=== PATIENT | male | born 1945 | race Native Hawaiian/Other Pacific Islander ===

== ENCOUNTER 2017-10-13 09:45 | Outpatient (CLI) | payer OTHER ==
[2017-10-13 10:04] LABS: PLATELET COUNT 188 K/uL (142-355)
[2017-10-13 10:23] LABS: POTASSIUM 4.2 mmol/L (3.6-5.2)
== END 2017-10-13 19:06 | disposition home or self-care (01) ==
LOC: LAB 09:45
PROVIDERS: Internal Medicine
DX: E29.1 Testicular hypofunction (principal); I10 Essential (primary) hypertension; G47.33 Obstructive sleep apnea (adult) (pediatric); Z12.5 Encounter for screening for malignant neoplasm of prostate
CPT/HCPCS: 80053; 80061; 84153; 84403; 84443; 85027

== ENCOUNTER 2020-03-06 13:56 | Outpatient (CLI) | payer OTHER ==
[2020-03-06 14:19] LABS: PLATELET COUNT 210 K/uL (142-355)
[2020-03-06 14:46] LABS: POTASSIUM 4.5 mmol/L (3.6-5.2)
== END 2020-03-06 22:34 | disposition home or self-care (01) ==
LOC: LAB 13:56
PROVIDERS: Internal Medicine
DX: Z00.00 Encounter for general adult medical examination without abnormal findings (principal); I10 Essential (primary) hypertension; Z12.5 Encounter for screening for malignant neoplasm of prostate; E29.1 Testicular hypofunction; N40.0 Benign prostatic hyperplasia without lower urinary tract symptoms
CPT/HCPCS: 80053; 80061; 81000; 84153; 84402; 84403; 84439; 84443; 85027

== ENCOUNTER 2020-03-14 09:11 | Outpatient (CLI) | payer OTHER | END 2020-03-14 20:23 | disposition home or self-care (01) | LOC: US 09:11 | DX: Z12.2 Encounter for screening for malignant neoplasm of respiratory organs (principal); Z13.6 Encounter for screening for cardiovascular disorders; Z87.891 Personal history of nicotine dependence | CPT/HCPCS: G0297-TC ==

== ENCOUNTER 2020-03-22 10:12 | Outpatient (CLI) | payer OTHER ==
[2020-03-22 11:19] LABS: POTASSIUM 4.4 mmol/L (3.6-5.2)
== END 2020-03-22 14:16 | disposition home or self-care (01) ==
LOC: LAB 10:12
PROVIDERS: ATTEND Internal Medicine
DX: R73.9 Hyperglycemia, unspecified (principal)
CPT/HCPCS: 80053; 83036

== ENCOUNTER 2020-05-11 08:53 | Outpatient (CLI) | payer OTHER | END 2020-05-11 23:52 | disposition home or self-care (01) | LOC: US 08:53 | DX: H34.8310 Tributary (branch) retinal vein occlusion, right eye, with macular edema (principal) ==

== ENCOUNTER 2020-07-05 23:06 | Emergency (ER) | payer OTHER ==
[~2020-07-05] VITALS: Ht 180.3 cm; Wt 82.6 kg
[2020-07-05 23:39] LABS: PLATELET COUNT 192 K/uL (142-355)
[2020-07-05 23:44] LABS: POTASSIUM 4.5 mmol/L (3.6-5.2); SODIUM 138 mmol/L (136-145)
[2020-07-06 05:35] VITALS: BP 150/77; TEMP 99
== END 2020-07-06 05:35 | disposition short-term general hospital (02) ==
LOC: ED 23:06
PROVIDERS: Emergency Medicine Emergency Medical Services
DX: K85.10 Biliary acute pancreatitis without necrosis or infection (principal)
CPT/HCPCS: 80053; 81000; 83690; 84484; 85027; 93005; 96360; 96365; 96375; 96376; 99284; J1170; J2270; J2405; J2543; Q9963

== ENCOUNTER 2020-07-31 12:00 | Outpatient (CLI) | payer OTHER ==
[2020-07-31 12:39] LABS: PLATELET COUNT 223 K/uL (142-355)
[2020-07-31 12:41] LABS: POTASSIUM 4.2 mmol/L (3.6-5.2)
== END 2020-07-31 22:28 | disposition home or self-care (01) ==
LOC: LAB 12:00
PROVIDERS: ATTEND Internal Medicine
DX: K85.10 Biliary acute pancreatitis without necrosis or infection (principal)
CPT/HCPCS: 80053; 81000; 82150; 83690; 85027

== ENCOUNTER 2020-10-02 07:54 | Outpatient (CLI) | payer OTHER ==
[2020-10-02 08:17] LABS: PLATELET COUNT 191 K/uL (142-355)
[2020-10-02 08:45] LABS: POTASSIUM 4.5 mmol/L (3.6-5.2)
== END 2020-10-02 19:43 | disposition home or self-care (01) ==
LOC: LABW 07:54
PROVIDERS: ATTEND Physician Assistant
DX: R74.8 Abnormal levels of other serum enzymes (principal); K85.10 Biliary acute pancreatitis without necrosis or infection; Z86.010 Personal history of colon polyps; D64.89 Other specified anemias
CPT/HCPCS: 36415; 80053; 82150; 82248; 82607; 82728; 82746; 82977; 83540; 83550; 83690; 85027; 85610

== ENCOUNTER 2021-01-10 08:20 | Outpatient (CLI) | payer OTHER | END 2021-01-10 23:16 | disposition home or self-care (01) | LOC: CT 08:20 | PROVIDERS: ATTEND Physician Assistant | DX: K76.0 Fatty (change of) liver, not elsewhere classified (principal); K85.10 Biliary acute pancreatitis without necrosis or infection; D64.89 Other specified anemias; Z86.010 Personal history of colon polyps | CPT/HCPCS: 36415; 82565; 84520; Q9963 ==

== ENCOUNTER 2021-02-05 08:12 | Outpatient (CLI) | payer OTHER ==
[2021-02-05 08:50] LABS: PLATELET COUNT 187 K/uL (142-355)
== END 2021-02-05 22:39 | disposition home or self-care (01) ==
LOC: LABW 08:12
PROVIDERS: ATTEND Internal Medicine
DX: E11.9 Type 2 diabetes mellitus without complications (principal)
CPT/HCPCS: 36415; 80053; 80061; 81000; 82043; 82570; 83036; 84439; 84443; 85027

== ENCOUNTER 2021-05-29 07:35 | Outpatient (CLI) | payer OTHER ==
[2021-05-29 07:54] LABS: PLATELET COUNT 185 K/uL (142-355)
[2021-05-29 08:32] LABS: POTASSIUM 4.4 mmol/L (3.6-5.2)
== END 2021-05-29 18:59 | disposition home or self-care (01) ==
LOC: LABW 07:35
PROVIDERS: ATTEND Physician Assistant
DX: K76.0 Fatty (change of) liver, not elsewhere classified (principal); Z87.19 Personal history of other diseases of the digestive system; Z86.2 Personal history of diseases of the blood and blood-forming organs and certain disorders involving the immune mechanism; Z86.010 Personal history of colon polyps; Z09 Encounter for follow-up examination after completed treatment for conditions other than malignant neoplasm
CPT/HCPCS: 36415; 80053; 82105; 83690; 85027; 85610

== ENCOUNTER 2021-09-12 07:50 | Outpatient (CLI) | payer OTHER ==
[2021-09-12 08:15] LABS: PLATELET COUNT 172 K/uL (142-355)
[2021-09-12 08:40] LABS: POTASSIUM 4.2 mmol/L (3.6-5.2)
== END 2021-09-12 18:50 | disposition home or self-care (01) ==
LOC: LABW 07:50
PROVIDERS: ATTEND Internal Medicine
DX: E11.9 Type 2 diabetes mellitus without complications (principal); K76.0 Fatty (change of) liver, not elsewhere classified
CPT/HCPCS: 36415; 80053; 80061; 81000; 82248; 83036; 84439; 84443; 85027

== ENCOUNTER 2021-12-02 07:38 | Outpatient (CLI) | payer OTHER ==
[2021-12-02 08:27] LABS: PLATELET COUNT 159 K/uL (142-355)
== END 2021-12-02 19:05 | disposition home or self-care (01) ==
LOC: LABW 07:38
PROVIDERS: ATTEND Physician Assistant
DX: R74.8 Abnormal levels of other serum enzymes (principal); K76.0 Fatty (change of) liver, not elsewhere classified; Z87.19 Personal history of other diseases of the digestive system; Z86.2 Personal history of diseases of the blood and blood-forming organs and certain disorders involving the immune mechanism; Z09 Encounter for follow-up examination after completed treatment for conditions other than malignant neoplasm
CPT/HCPCS: 36415; 80053; 80074; 82105; 82728; 82784; 82977; 83516; 83540; 83550; 83690; 85027; 85610; 86038

== ENCOUNTER 2021-12-19 07:31 | Outpatient (CLI) | payer OTHER | END 2021-12-19 19:06 | disposition home or self-care (01) | LOC: LABW 07:31 | PROVIDERS: ATTEND Physician Assistant | DX: R79.89 Other specified abnormal findings of blood chemistry (principal); R93.2 Abnormal findings on diagnostic imaging of liver and biliary tract; R74.8 Abnormal levels of other serum enzymes | CPT/HCPCS: 36415; 81256; 82728 ==

== ENCOUNTER → 2022-06-03 | Outpatient (CLI) | payer OTHER | LOC: LABW 08:19 | PROVIDERS: ATTEND Physician Assistant | DX: K76.0 Fatty (change of) liver, not elsewhere classified (principal); K74.60 Unspecified cirrhosis of liver; R74.8 Abnormal levels of other serum enzymes; Z87.19 Personal history of other diseases of the digestive system; Z86.2 Personal history of diseases of the blood and blood-forming organs and certain disorders involving the immune mechanism; I10 Essential (primary) hypertension; I25.10 Atherosclerotic heart disease of native coronary artery without angina pectoris; E78.5 Hyperlipidemia, unspecified; E11.9 Type 2 diabetes mellitus without complications | CPT/HCPCS: 36415; 80061; 83036; 84439; 84443 ==

== ENCOUNTER 2022-06-09 07:35 | Outpatient (CLI) | payer OTHER ==
[2022-06-09 08:08] LABS: PLATELET COUNT 157 K/uL (142-355)
== END 2022-06-09 18:55 | disposition home or self-care (01) ==
LOC: LABW 07:35
PROVIDERS: ATTEND Physician Assistant
DX: K76.0 Fatty (change of) liver, not elsewhere classified (principal); K74.60 Unspecified cirrhosis of liver; R74.8 Abnormal levels of other serum enzymes; Z87.19 Personal history of other diseases of the digestive system; Z86.2 Personal history of diseases of the blood and blood-forming organs and certain disorders involving the immune mechanism; Z09 Encounter for follow-up examination after completed treatment for conditions other than malignant neoplasm; I10 Essential (primary) hypertension; E78.49 Other hyperlipidemia; E11.9 Type 2 diabetes mellitus without complications; I25.10 Atherosclerotic heart disease of native coronary artery without angina pectoris
CPT/HCPCS: 36415; 80053; 82105; 82728; 82977; 85027; 85610

== ENCOUNTER 2022-09-23 07:33 | Outpatient (CLI) | payer OTHER | END 2022-09-23 19:26 | disposition home or self-care (01) | LOC: LABW 07:33 | PROVIDERS: ATTEND Physician Assistant | DX: K74.60 Unspecified cirrhosis of liver (principal); K76.89 Other specified diseases of liver | CPT/HCPCS: 36415; 82565; 84520 ==

== ENCOUNTER 2022-12-19 12:27 | Outpatient (CLI) | payer OTHER ==
[2022-12-19 13:00] LABS: PLATELET COUNT 147 K/uL (142-355)
[2022-12-19 13:59] LABS: POTASSIUM 4.3 mmol/L (3.6-5.2); SODIUM 138 mmol/L (136-145)
== END 2022-12-19 19:17 | disposition home or self-care (01) ==
LOC: LAB 12:27
PROVIDERS: ATTEND Internal Medicine
DX: E11.9 Type 2 diabetes mellitus without complications (principal); I10 Essential (primary) hypertension; E55.9 Vitamin D deficiency, unspecified; Z12.5 Encounter for screening for malignant neoplasm of prostate; N40.0 Benign prostatic hyperplasia without lower urinary tract symptoms
CPT/HCPCS: 80053; 80061; 81002; 82306; 83036; 84153; 84439; 84443; 85027

== ENCOUNTER 2023-01-12 07:34 | Outpatient (CLI) | payer OTHER ==
[2023-01-12 07:52] LABS: PLATELET COUNT 160 K/uL (142-355)
[2023-01-12 08:29] LABS: POTASSIUM 4.7 mmol/L (3.6-5.2)
== END 2023-01-12 20:01 | disposition home or self-care (01) ==
LOC: LABW 07:34
PROVIDERS: ATTEND Physician Assistant
DX: K74.60 Unspecified cirrhosis of liver (principal); K76.89 Other specified diseases of liver; K76.0 Fatty (change of) liver, not elsewhere classified; R74.8 Abnormal levels of other serum enzymes; Z87.19 Personal history of other diseases of the digestive system; Z86.2 Personal history of diseases of the blood and blood-forming organs and certain disorders involving the immune mechanism; R19.7 Diarrhea, unspecified; E55.9 Vitamin D deficiency, unspecified
CPT/HCPCS: 36415; 80053; 82105; 82306; 82390; 82525; 82728; 82977; 84590; 84630; 85027; 85610